=== PATIENT | female | born 1985 | race Caucasian/White ===

== ENCOUNTER 2018-06-08 13:25 | Emergency (ER) | payer OTHER ==
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
[2018-06-08] MEDS ORDERED: HYDROCODONE/APAP 10/325 TAB ONE (15:50)
[2018-06-08 18:49] LABS: Urine Blood 2+ (NEG); Urine Glucose NEGATIVE (NEG); Urine Protein 1+ (NEG); Urine pH 5.5 (5.0-7.0)
== END 2018-06-08 16:15 | disposition home or self-care (01) ==
LOC: ER 13:25
DX: Z04.71 Encounter for examination and observation following alleged adult physical abuse (principal); S13.4XXA Sprain of ligaments of cervical spine, initial encounter; Y04.2XXA Assault by strike against or bumped into by another person, initial encounter; Z72.0 Tobacco use
CPT/HCPCS: 72125; 81003; 81025; 99284